=== PATIENT | male | born 1970 | race Caucasian/White ===

== ENCOUNTER 2020-04-28 08:34 | Day surgery (SDC) | payer OTHER, SELFPAY ==
[2020-04-24 13:40] VITALS: BMI 31.2
--- NOTE | 2020-04-27 12:43 | HO.ANESPROP2 ---
Documented by User: Estela Pruitt 04/27/20 12:43 HPI - Anesthesia Eval Consult details Narrative: 49yo M for Colonoscopy FOR[facility]LY [facility] Past Medical History Medical History Back pain HTN (hypertension) Surgical History Surgical History History of back surgery Hx of cystoscopy Social History Social History (Updated 04/28/20 @ 09:52 by Belia Gambino) Smoking Status: Never smoker Use of substances other than those prescribed or required for medical reasons: No Advance Directives Information Provided: No Meds Allergies Allergy/AdvReac Type Severity Reaction Status Date / Time Iodinated Contrast Media Allergy Severe ANAPHYLAXIS Verified 04/24/20 13:43 [IV CONTRAST] Penicillins Allergy Severe HIVES/SWELL Verified 04/24/20 13:43 ING shellfish derived Allergy Severe ANAPHYLAXIS Verified 04/24/20 13:43 [SHELLFISH DERIVED] aspirin [Aspirin] Allergy Intermediate SWELLING Verified 04/24/20 13:43 Home Medications Medication Instructions Recorded Confirmed Type amlodipine 7.5 mg PO BEDTIME 04/24/20 04/24/20 History fluticasone propionate [Flonase] 1 spray INTRANASAL BID 04/24/20 04/24/20 History hydrochlorothiazide 12.5 mg PO QAM 04/24/20 04/24/20 History metoprolol tartrate 25 mg PO BID 04/24/20 04/28/20 History oxycodone-acetaminophen 1 tab PO Q6H PRN 04/24/20 04/24/20 History trazodone 50 mg PO BEDTIME 04/24/20 04/24/20 History Exam Exam Date and Time: April 27, 2020 1243 Height,Weight and Vital Signs: Height 5 ft 5 in Weight 85.275 kg Assessment and Plan Assessment Anesthesia Assessment: Chart Reviewed Documented by User: Belia Gambino 04/28/20 09:53 [facility] Past Medical History Medical History Back pain HTN (hypertension) Family History Family history of problems with anesthesia: No Surgical History Surgical History History of back surgery Hx of cystoscopy History of Problems with Anesthesia: No Social History Social History (Updated 04/28/20 @ 09:52 by Belia Gambino) Smoking Status: Never smoker Use of substances other than those prescribed or required for medical reasons: No Advance Directives Information Provided: No Meds Allergies Allergy/AdvReac Type Severity Reaction Status Date / Time Iodinated Contrast Media Allergy Severe ANAPHYLAXIS Verified 04/24/20 13:43 [IV CONTRAST] Penicillins Allergy Severe HIVES/SWELL Verified 04/24/20 13:43 ING shellfish derived Allergy Severe ANAPHYLAXIS Verified 04/24/20 13:43 [SHELLFISH DERIVED] aspirin [Aspirin] Allergy Intermediate SWELLING Verified 04/24/20 13:43 Home Medications Medication Instructions Recorded Confirmed Type amlodipine 7.5 mg PO BEDTIME 04/24/20 04/24/20 History fluticasone propionate [Flonase] 1 spray INTRANASAL BID 04/24/20 04/24/20 History hydrochlorothiazide 12.5 mg PO QAM 04/24/20 04/24/20 History metoprolol tartrate 25 mg PO BID 04/24/20 04/28/20 History oxycodone-acetaminophen 1 tab PO Q6H PRN 04/24/20 04/24/20 History trazodone 50 mg PO BEDTIME 04/24/20 04/24/20 History Exam Height,Weight and Vital Signs: Vital Signs Temp Pulse Resp BP Pulse Ox 04/28/20 09:20 97.5 F 76 16 147/86 H 100 Airway Mallampati Class: II TM Dist: >3cm Neck ROM: Full Loose/Missing/Broken Teeth: No Heart: RRR Lungs: CTAB Assessment and Plan Assessment Anesthesia Assessment: Anesthesia Plan Discussed and Chart Reviewed Final Anesthetic Review NPO: Yes ASA Class: II Final Preanesthetic Review: No Changes in Pt Med Stat, Meds/Allgs Chart Reviewed, Consent Obtained/Reviewed and Anes Risks/Benef Reviewed Patient Risk: Low Procedure Risk: Low Anesthetic Plan Anesthetic Plan: MAC: Disposition: Standard PACU
[2020-04-28 09:20] VITALS: BP 147/86; PULSE 76; RESP 16; TEMP 36.4; O2SAT 100
--- NOTE | 2020-04-28 10:31 | PM.OP ---
Brief Operative Note Date of Service: 04/28/20 Pre-op diagnosis: Screening Post-op diagnosis: other (Colon polyps) Procedure: Colonoscopy to cecum and TI with snare polypectomy, and biopsy and removal of polyp Surgeon: Michael Horner Anesthesia: MAC Estimated blood loss (mL): 2.0 Pathology: other (A. Ascending colon polyps) Condition: stable Disposition: PACU
[2020-04-28 10:32] VITALS: BP 90/50; PULSE 68; RESP 12; TEMP 36.8; O2SAT 97
[2020-04-28 10:47] VITALS: BP 135/87; PULSE 69; RESP 16; O2SAT 99
[2020-04-28 10:55] VITALS: BP 128/65; PULSE 66; RESP 18; O2SAT 100
--- NOTE | 2020-04-28 11:02 | HO.POSTANES ---
Post Anesthesia Evaluation Post Anesthesia Evaluation Vital Signs: Vital Signs Temp Pulse Resp BP Pulse Ox 04/28/20 10:55 66 18 128/65 100 04/28/20 10:47 69 16 135/87 99 04/28/20 10:32 98.2 F 68 12 90/50 L 97 04/28/20 09:20 97.5 F 76 16 147/86 H 100 Anesthesia: Monitored Mental Status: Awake Pain Control: Satisfactory Nausea/Vomiting: None Hydration: Adequate Anesthesia-Related Issues: No Anes. Related Issues
--- NOTE | 2020-04-28 11:14 | OP_ITS ---
SURGEON: Michael Horner MD INDICATIONS: The patient presents for evaluation of colorectal cancer screening. Full consent has been obtained from him for this, including risks of bleeding and perforation. PREOPERATIVE DIAGNOSIS: Colorectal cancer screening. POSTOPERATIVE DIAGNOSIS: PROCEDURE PERFORMED: Colonoscopy to cecum and terminal ileum with snare polypectomy, and biopsy and removal of polyp. ESTIMATED BLOOD LOSS: COMPLICATIONS: ANESTHESIA: Monitored anesthesia care. ASSISTANTS: SPECIMENS: POSTOPERATIVE DIAGNOSES: Colorectal cancer screening, colon polyps, diverticulosis and internal hemorrhoids. DESCRIPTION OF PROCEDURE: The patient was placed in the left lateral decubitus position. The digital rectal exam revealed no abnormalities. The Olympus video pediatric colonoscope was entered into the rectum and advanced easily to the cecum. Once in the cecum, I did identify normal-appearing cecal pouch with appendiceal orifice and a normal-appearing ileocecal valve. The terminal ileum was cannulated and appeared normal. The scope was withdrawn back in the colon. The entire cecum and ileocecal valve appeared normal. The scope was slowly withdrawn assessing all mucosal surfaces carefully. Preparation was excellent. In the ascending colon, was an approximately 8 mm polyp, which was snared and recovered by suction. The polypectomy site appeared clean, without any sign of residual polyp nor bleeding. Also, in the ascending colon, was an approximately 3 mm polyp, which was biopsied and completely removed with cold biopsy forceps and placed in the same container. I did not visualize any other polyps, colitis, nor angiodysplasia. There was a mild amount of sigmoid diverticulosis. In the rectum, scope was retroflexed visualizing small internal hemorrhoids, but no other pathology. The rectal mucosa appeared normal. The scope was straightened out and withdrawn from the patient. He tolerated the procedure well and was returned to recovery area in stable condition. IMPRESSION: 1. Colon polyps, status post snare polypectomy, and biopsy and removal. 2. Diverticulosis. 3. Internal hemorrhoids. PLAN: The results of the pathology will be checked. Assuming the larger polyp is a tubular adenoma, I would recommend a followup colonoscopy in 5 years for further surveillance. He was advised not to use any aspirin and NSAIDs for 1 week. This has been discussed with his . MD GENE Nails/NIKI / [id number]
== END 2020-04-28 11:10 | disposition home or self-care (01) ==
PROVIDERS: PCP Internal Medicine; Visit Provider Internal Medicine
PROC: 0DJD8ZZ Inspection of Lower Intestinal Tract, Via Natural or Artificial Opening Endoscopic (ICD-10-PCS; CPT 45378; principal; 2020-04-28 09:50)
DX: Z12.11 Encounter for screening for malignant neoplasm of colon (principal); D12.2 Benign neoplasm of ascending colon; K57.30 Diverticulosis of large intestine without perforation or abscess without bleeding; K64.8 Other hemorrhoids; Z88.0 Allergy status to penicillin; Z88.6 Allergy status to analgesic agent
CPT/HCPCS: 45385; 45380; 88305

== ENCOUNTER 2021-02-27 11:50 | Outpatient (REF) | payer OTHER, SELFPAY | END 2021-02-27 11:51 | disposition home or self-care (01) | LOC: HO.LAB 11:50 | PROVIDERS: PCP Internal Medicine; Visit Provider Internal Medicine | DX: Z20.822 Contact with and (suspected) exposure to COVID-19 (principal) | CPT/HCPCS: C9803; U0003; U0005 ==

== ENCOUNTER 2021-03-28 14:47 | Outpatient (REF) | payer OTHER, SELFPAY | END 2021-03-28 14:48 | disposition home or self-care (01) | LOC: HO.LAB 14:47 | PROVIDERS: PCP Internal Medicine; Visit Provider Internal Medicine | DX: Z20.822 Contact with and (suspected) exposure to COVID-19 (principal) | CPT/HCPCS: C9803; U0003; U0005 ==

== ENCOUNTER 2021-06-13 14:37 | Outpatient (REF) | payer OTHER, SELFPAY ==
[2021-06-13 15:00] LABS: Binax Internal Control QC Valid; Binax Now Covid-19 Ag Negative (Negative)
== END 2021-06-13 14:38 | disposition home or self-care (01) ==
LOC: HO.LAB 14:37
PROVIDERS: Visit Provider Internal Medicine
DX: Z20.822 Contact with and (suspected) exposure to COVID-19 (principal)
CPT/HCPCS: C9803

== ENCOUNTER 2023-06-03 08:41 | Outpatient (REF) | payer OTHER, SELFPAY ==
[2023-06-03 12:03] LABS: Alanine Aminotransferase 33 U/L (0-40); Albumin Level 4.6 g/dL (3.5-5.0); Alkaline Phosphatase 90 U/L (39-117); Anion Gap 13 (12-20); Aspartate Amino Transferase 22 U/L (5-37); Bilirubin Direct 0.2 mg/dL (0.0-0.5); Bilirubin Total 0.7 mg/dL (0.0-1.0); Blood Urea Nitrogen 22 mg/dL (9-16); Calcium 9.5 mg/dL (8.4-10.2); Carbon Dioxide 29 mmol/L (22-29); Chloride 102 mmol/L (96-108); Cholesterol 213 mg/dL (<200); Estimated Glomerular Filt Rate > 60; Glucose Random 116 mg/dL (60-115); HDL Cholesterol 39 mg/dL (>40); LDL Cholesterol Calculated 118 mg/dL (<100); Potassium 4.2 mmol/L (3.3-5.1); Sodium 140 mmol/L (135-145); Total Protein 7.8 g/dL (6.5-8.0); Triglycerides 280 mg/dL (<150)
[2023-06-03 13:26] LABS: Reflex LDLD? No
== END 2023-06-03 08:42 | disposition home or self-care (01) ==
LOC: HO.HHCL 08:41
PROVIDERS: Visit Provider Internal Medicine
DX: E78.5 Hyperlipidemia, unspecified (principal)
CPT/HCPCS: 36415; 80048; 80061; 80076

== ENCOUNTER 2024-05-05 08:57 | Outpatient (REF) | payer OTHER, SELFPAY ==
[2024-05-05 12:22] LABS: Alanine Aminotransferase 30 U/L (0-40); Albumin Level 4.4 g/dL (3.5-5.0); Alkaline Phosphatase 60 U/L (39-117); Anion Gap 9 (12-20); Aspartate Amino Transferase 31 U/L (5-37); Bilirubin Total 0.6 mg/dL (0.0-1.0); Blood Urea Nitrogen 23 mg/dL (9-16); Carbon Dioxide 31 mmol/L (22-29); Chloride 106 mmol/L (96-108); Cholesterol 184 mg/dL (<200); Estimated Glomerular Filt Rate > 60; Glucose Random 125 mg/dL (60-115); HDL Cholesterol 37 mg/dL (>40); LDL Cholesterol Calculated 116 mg/dL (<100); Potassium 4.3 mmol/L (3.3-5.1); Sodium 142 mmol/L (135-145); Total Protein 7.2 g/dL (6.5-8.0); Triglycerides 157 mg/dL (<150)
[2024-05-05 12:32] LABS: Prostate Specific Antigen Scr 3.55 ng/mL (<0.05-4.0)
== END 2024-05-05 08:58 | disposition home or self-care (01) ==
LOC: HO.HHCL 08:57
PROVIDERS: Visit Provider Internal Medicine
DX: Z00.00 Encounter for general adult medical examination without abnormal findings (principal); Z12.5 Encounter for screening for malignant neoplasm of prostate; I10 Essential (primary) hypertension; E78.5 Hyperlipidemia, unspecified
CPT/HCPCS: 36415; 80053; 80061; 84153